=== PATIENT | female | born 1995 | race American Indian/Alaskan Native ===

== ENCOUNTER 2017-08-03 13:38 | Outpatient (CLI) | payer MEDICAID ==
[2017-08-03 13:55] VITALS: BP 120/60
--- NOTE | 2017-08-04 09:09 | Ultrasound Report ---
FINAL REPORT EXAM: US OB LIMITED HISTORY: PAPITO COMPARISON: None. TECHNIQUE: Limited obstetrical ultrasound was performed to evaluate for amniotic fluid index FINDINGS: heart rate is 148 beats per minute. Amniotic fluid index is 9.9 centimeters. There is single live intrauterine in cephalic presentation. IMPRESSION: Amniotic fluid index is 9.9 centimeters.
--- NOTE | 2017-08-04 09:15 | Ultrasound Report ---
FINAL REPORT EXAM: US OB BPP WO NON-STRESS HISTORY: WELL BEING COMPARISONS: Third trimester limited ultrasound of the same date FINDINGS: Grayscale, color and M-mode limited 3rd trimester ultrasound for biophysical profile Note that this examination was obtained on 08/03/2017 but not submitted for interpretation until 08/04/2017 Single living intrauterine . Recorded cardiac activity is 148 beats per minute. Amniotic fluid volume is subjectively normal and amniotic fluid index is approximately 10 cm. Biophysical profile score is 10/10. IMPRESSION: Single living intrauterine with biophysical profile score of 10/10.
== END 2017-08-03 16:25 | disposition home or self-care (01) ==
LOC: TRG 13:38
PROVIDERS: ATTEND Obstetrics & Gynecology
DX: O36.8130 Decreased fetal movements, third trimester, not applicable or unspecified (principal); Z3A.38 38 weeks gestation of pregnancy
CPT/HCPCS: 59025; 76815; 76819

== ENCOUNTER 2017-08-12 23:06 | Inpatient (IN) | payer MEDICAID ==
[2017-08-13] MEDS ORDERED: LACTATED RINGERS 1,000 ML ONE ×2 (00:38→00:39)
[2017-08-13] MEDS ORDERED: ePHEDrine SULFATE IV PRN ×2 (00:39→08:45)
[2017-08-13] MEDS ORDERED: SUBLIMAZE IV PRN (00:39)
[2017-08-13] MEDS ORDERED: BRETHINE SUB-Q PRN (00:39)
[2017-08-13] MEDS ORDERED: STADOL IV PRN (00:39)
[2017-08-13] MEDS ORDERED: BRETHINE IVP PRN (00:39)
[2017-08-13] MEDS ORDERED: XYLOCAINE 2% INFILTRATI ONE (00:39)
[2017-08-13] MEDS ORDERED: POLYCILLIN/NS 2 GM/100 ML 2 GM/100 ML BAG IV ONE (00:39)
[2017-08-13] MEDS ORDERED: ZOFRAN IV PRN ×2 (00:39→17:53)
[2017-08-13] MEDS ORDERED: NARCAN 0.4 MG/1 ML IV PRN ×2 (00:39→17:53)
[2017-08-13] MEDS ORDERED: MINERAL OIL PO PRN (00:39)
--- NOTE | 2017-08-13 00:51 | History and Physical Report ---
History of Present Illness Date of examination: 08/13/17 Date of admission: 08/12/17 23:31 Chief complaint: SROM clear fluid @ 10pm History of present illness: Pt is a 21yo BF EDC 08/13/17; EGA 40 0/7 weeks presents to L&D complaining of SROM clear fluid @ 10pm followed by RUC's q 3-4 mins. She received care at [facility] since 9 weeks and course has been unremarkable. records are available and GBS is Positive. Past History Past Medical History: no pertinent history Past Surgical History: no surgical history Family/Genetic History: none Social history: no significant social history, single - Obstetrical History Expected Date of Delivery: 08/13/17 Actual Gestation: 40 Week(s) 0 Day(s) : 1 Medications and Allergies Allergies Allergy/AdvReac Type Severity Reaction Status Date / Time No Known Allergies Allergy Unverified 08/03/17 14:20 Review of Systems All systems: negative - Vital Signs Vital signs: Vital Signs Temp Pulse Resp BP 98.9 F 92 H 18 134/77 08/12/17 23:54 08/12/17 23:54 08/12/17 23:54 08/12/17 23:54 Temp Pulse Resp BP Pulse Ox 98.9 F 85 18 112/71 98 08/12/17 23:54 08/13/17 00:47 08/12/17 23:54 08/13/17 00:47 08/13/17 00:43 - Physical Exam Breasts: Positive: deferred Cardiovascular: Regular rate Lungs: Positive: Clear to auscultation Abdomen: Positive: normal appearance Genitourinary (Female): Positive: normal external genitalia Uterus: Positive: enlarged Extremities: Positive: normal - Obstetrical FHR: category 1 Uterine Contraction Monitor Mode: External Cervical Dilatation: 3 (per nurse) Cervical Effacement Percentage: 80 (per nurse) station: -2 Uterine Contraction Pattern: Irregular Uterine Tone Measurement Phase: Contraction Uterine Contraction Intensity: Mild Results Result Diagrams: 08/13/17 01:44 All other labs normal. Assessment and Plan - Patient Problems (1) 40 weeks gestation of Onset Date: 08/13/17 Current Visit: Yes Status: Acute Plan to address problem: A: IUP @ 40 0/7 weeks in labor +GBS P: Admit to L&D for expectant vaginal delivery IV Ampicillin (2) GBS (group B streptococcus) infection Onset Date: 08/13/17 Current Visit: Yes Status: Acute
[2017-08-13] MEDS ORDERED: LACTATED RINGERS 1,000 ML IV SCH ×2 (01:00→13:00)
[2017-08-13] MEDS ORDERED: PITOCin/NS 30 UNIT/500ML 30 UNITS/500 ML BAG IV SCH ×2 (01:00)
[2017-08-13] MEDS ORDERED: PITOCin/NS 20 UNIT/1000ML DRIP 20 UNITS/1,000 ML BAG IV SCH ×3 (01:00→18:00)
[2017-08-13 02:03] LABS: Hematocrit 35.1 % (30.3-42.9); Hemoglobin 11.9 gm/dl (10.1-14.3); Mean Corpuscular HGB Conc 34 % (30-34); Mean Corpuscular Hemoglobin 29 pg (28-32); Mean Corpuscular Volume 86 fl (79-97); Platelet Count 250 K/mm3 (140-440); Red Blood Count 4.06 M/mm3 (3.65-5.03); Red Cell Distribution Width 14.2 % (13.2-15.2)
[2017-08-13] MEDS: AMPICILLIN/NS 1 GM/50 ML 1 GM/50 ML BAG IV SCH ×3 (05:09→14:25)
[2017-08-13] MEDS ORDERED: NARCAN 2 MG/2 ML IV PRN (08:45)
[2017-08-13] MEDS ORDERED: fentaNYL-BUPIV 2 MCG/ML-0.125% 200 MCG/100 ML BAG EPIDURAL SCH (09:00)
[2017-08-13] MEDS ORDERED: PEPCID IV ONE ×2 (12:38→15:25)
[2017-08-13] MEDS ORDERED: REGLAN IV ONE (12:38)
[2017-08-13] MEDS ORDERED: BICITRA PO ONE (12:38)
--- NOTE | 2017-08-13 12:38 | Event Note ---
Date: 08/13/17 Called and notified the patient having decelerations. Pitocin turned off with resolution. Discussed above with patient, explained we'll proceed with primary due to non-tolerance of labor. Patient and her family member has accepted above. She has been consented, we'll proceed to the OR once available
[2017-08-13] MEDS ORDERED: ANCEF/STERILE WATER 2 GM/20 ML 2 GM/20 ML SYRINGE IV NR (13:00)
[2017-08-13] MEDS ORDERED: BICITRA ONE (15:25)
[2017-08-13] MEDS ORDERED: REGLAN ONE (15:25)
[2017-08-13] MEDS ORDERED: XYLOCAINE MPF 2% ONE ×5 (16:32→17:54)
[2017-08-13] MEDS ORDERED: NACL 0.9% IR ONE (16:50)
[2017-08-13] MEDS ORDERED: WATER FOR IRRIG STERILE IR ONE (16:51)
[2017-08-13] MEDS ORDERED: ANCEF/STERILE WATER 2 GM/20 ML IV ONE (16:53)
[2017-08-13] MEDS ORDERED: MORPHINE ONE (17:22)
--- NOTE | 2017-08-13 17:50 | Operative Report ---
Operative Report Operative Report: DATE: 08/13/2017 PREOPERATIVE DIAGNOSIS: 21-year-old at 40+1 wks, category 2 with non- tolerance of labor, Arrest of dilation POSTOP DIAGNOSIS: As above NAME OF PROCEDURE: Primary low transverse section SURGEON: ODALIS SOSA MD [employer] SUPERVISOR: Charlotte ANESTHESIA: Epidural EBL: 600 mL PATHOLOGY SPECIMEN: None URINE OUTPUT: 100 mL FINDINGS: Male infant in cephalic presentation, OP position, time of 17:07 , Apgars 9 and 9, nuchal cord 1, prominent caput, weight 6 lbs. 6 oz. or 2891 g, normal uterus, ovaries tubes bilaterally DESCRIPTION OF PROCEDURE: After informed consent, patient was taken to the operating room where she was prepped and draped in a sterile fashion. Pfannestial incision was performed 2 cm above the pubic symphysis. This was then carried down to the underlying rectus fascia which was scored in the midline. The fascial incision was extended laterally with the use of Lakhani scissors, anterior leaf was then grasped with Augustus's elevated dissected sharply and bluntly off the underlying rectus. In a similar fashion the inferior leaf was grasped elevated dissected sharply and bluntly off the underlying rectus. The rectus was in the midline and the peritoneal cavity was entered without difficulty. After good visualization of the bladder the peritoneal layer was extended up and down; bladder blade was placed in the patient's pelvic cavity, bladder flap was created without difficulty. A hysterotomy incision was then performed with clear amniotic fluid noted. Infant in cephalic presentation was delivered without difficulty in the usual manner; cord was clamped cut and was handed over to waiting NICU staff. The placenta was then delivered intact, the uterus was then exteriorized cleared of all clots and debris. Her hysterotomy incision was then closed in a running locked fashion with 0 Vicryl on a CTX; using the same suture were able to imbricate the initial layer. The uterus was then returned to the patient's pelvic cavity; the peritoneal edges were grasped with hemostats and Melinda's; irrigation was used to clear the gutters of all clots and debris. Tisseel hemostatic agent was applied copiously over the hysterotomy incision. The bladder flap was then closed in a running fashion with 3-0 Vicryl. The peritoneal layer was closed in a running fashion with 3-0 Vicryl; the rectus was reapproximated with a single aafstn-ti-drapd stitch. The fascia was then closed in a running fashion with 0 Vicryl; the subcutaneous layer was reapproximated with a single [id number] stitch. The skin was then closed in a subcuticular manner with 4-0 Monocryl. She tolerated the procedure well lap and instrument counts were correct 2, she did receive 2 grams of Ancef prior to the procedure. She is transferred to PACU in stable condition.
[2017-08-13] MEDS ORDERED: ANUCORT-HC PR PRN (17:53)
[2017-08-13] MEDS ORDERED: TYLENOL PO PRN (17:53)
[2017-08-13] MEDS ORDERED: LANSINOH TP PRN (17:53)
[2017-08-13] MEDS ORDERED: MILK OF MAGNESIA PO PRN (17:53)
[2017-08-13] MEDS ORDERED: MYLICON PO PRN (17:53)
[2017-08-13] MEDS ORDERED: TUCKS PAD TP PRN (17:53)
[2017-08-13] MEDS ORDERED: SODIUM CHLORIDE FLUSH SYRINGE 10 ML IV NR (18:00)
[2017-08-13] MEDS: DILAUDID IV PRN ×2 (18:10→18:43)
[2017-08-13] MEDS: TORADOL IV PRN (18:23)
[2017-08-14] MEDS: TORADOL IV PRN ×2 (00:21→08:33)
[2017-08-14] MEDS: D5LR 1,000 ML IV SCH ×2 (04:51→14:43)
[2017-08-14 06:21] LABS: Hematocrit 34.6 % (30.3-42.9); Hemoglobin 11.3 gm/dl (10.1-14.3)
[2017-08-14] MEDS: PRENATAL VITAMIN PO SCH (10:29)
[2017-08-14] MEDS: FEOSOL PO SCH (10:31)
[2017-08-14] MEDS: PERCOCET 5/325 PO PRN (12:25)
--- NOTE | 2017-08-14 13:04 | Progress Note ---
Assessment and Plan - Patient Problems (1) S/P primary low transverse Current Visit: Yes Status: Acute Plan to address problem: POD#1 Continue routine post-op care. Encourage out of bed to chair. Subjective - Subjective Date of service: 08/14/17 Principal diagnosis: POD#1 s/p primary csection for distress Patient reports: appetite normal, voiding normally, pain well controlled [place]: doing well Objective - Vital Signs Latest vital signs: Vital Signs Temp Pulse Resp BP BP Pulse Ox 08/14/17 12:25 20 08/14/17 09:00 98.2 F 105 H 20 112/61 99 08/14/17 06:10 99.5 F 88 19 134/82 96 08/14/17 01:07 97.8 F 104 H 20 91/62 96 08/13/17 22:14 97.3 F L 108 H 20 143/86 97 08/13/17 19:13 20 08/13/17 19:06 86 128/84 08/13/17 19:05 99.1 F 08/13/17 19:00 90 20 132/90 96 08/13/17 18:55 84 21 128/84 95 08/13/17 18:50 83 19 137/82 96 08/13/17 18:45 84 18 131/87 96 08/13/17 18:43 16 08/13/17 18:40 20 08/13/17 18:39 90 19 136/90 97 08/13/17 18:38 16 08/13/17 18:30 91 H 16 136/97 97 08/13/17 18:25 94 H 21 140/91 97 08/13/17 18:20 88 23 135/95 98 08/13/17 18:15 96 H 20 147/91 99 08/13/17 18:10 99 H 22 137/96 99 08/13/17 18:05 95 H 15 133/95 99 08/13/17 18:00 100 H 19 136/90 100 08/13/17 17:55 107 H 20 142/87 99 08/13/17 17:54 98.5 F 107 H 20 142/87 98 08/13/17 17:53 15 172/106 98 08/13/17 17:35 172/106 08/13/17 16:15 100 H 119/72 08/13/17 15:59 82 118/72 08/13/17 15:39 107 H 114/79 08/13/17 15:34 111 H 127/74 08/13/17 15:30 92 H 120/69 08/13/17 15:19 110 H 115/69 08/13/17 15:14 115 H 112/78 08/13/17 15:09 117 H 105/74 08/13/17 15:05 118 H 120/75 08/13/17 14:56 112 H 135/63 08/13/17 14:50 90 118/80 08/13/17 14:39 85 109/75 08/13/17 14:34 82 123/74 08/13/17 14:29 88 122/65 08/13/17 14:24 81 126/71 08/13/17 14:19 88 127/76 08/13/17 14:14 92 H 120/68 08/13/17 14:09 76 124/69 08/13/17 14:05 106 H 134/69 08/13/17 13:55 83 138/68 08/13/17 13:45 78 127/82 08/13/17 13:39 83 125/79 08/13/17 13:34 91 H 124/78 08/13/17 13:31 91 H 131/77 08/13/17 13:25 98 H 132/77 08/13/17 13:19 80 126/72 08/13/17 13:14 80 131/64 08/13/17 13:10 79 132/72 Intake and Output 08/13/17 08/14/17 08/14/17 23:59 07:59 15:59 Intake Total 1600 Output Total 1000 Balance 600 Intake: IV 1600 Output: Urine 1000 Indwelling Catheter 450 Other: Total, Output Amount 450 Weight 88.451 kg - Exam Abdomen: Present: normal appearance, soft Uterus: Present: normal, firm, fundal height below umbilicus Extremities: Present: normal Incision: Present: dry, dressed
[2017-08-14] MEDS: MOTRIN PO PRN (17:45)
[2017-08-14] MEDS ORDERED: BOOSTRIX IM ONE (17:53)
[2017-08-14] MEDS ORDERED: M-M-R II VACCINE SUB-Q ONE (17:53)
--- NOTE | 2017-08-14 19:45 | Progress Note ---
Subjective Date of service: 08/14/17 Principal diagnosis: POD#1 s/p primary csection for distress Interval history: Pt doing well. No anesthetic related complaints. Objective - Constitutional Vitals: Vital Signs - 12hr 08/14/17 08/14/17 08/14/17 09:00 12:25 12:30 Temperature 98.2 F 97.8 F Pulse Rate 105 H 95 H Respiratory 20 20 18 Rate Blood Pressure Blood Pressure 112/61 122/62 [Right] O2 Sat by Pulse 99 99 Oximetry 08/14/17 15:27 Temperature 99.8 F H Pulse Rate 103 H Respiratory 18 Rate Blood Pressure 116/67 Blood Pressure [Right] O2 Sat by Pulse 98 Oximetry - Labs CBC & Chem 7: 08/14/17 05:27
[2017-08-15] MEDS: MOTRIN PO PRN ×2 (01:29→18:15)
[2017-08-15] MEDS: FEOSOL PO SCH (10:37)
[2017-08-15] MEDS: PRENATAL VITAMIN PO SCH (10:37)
--- NOTE | 2017-08-15 11:13 | Progress Note ---
Assessment and Plan - Patient Problems (1) S/P primary low transverse Current Visit: Yes Status: Acute Plan to address problem: POD 2 - stable Continue routine postop orders Discharge to home 08/16/17 Follow-up at [facility] in 2 weeks for incision check Subjective - Subjective Date of service: 08/15/17 Principal diagnosis: POD#2 s/p primary csection for distress Patient reports: appetite normal, voiding normally, pain well controlled, flatus , ambulating normally, no bowel movement : doing well, bottle feeding Objective - Vital Signs Latest vital signs: Vital Signs Temp Pulse Resp BP BP Pulse Ox 08/15/17 08:39 97.7 F 86 20 129/83 99 08/15/17 00:48 98.4 F 85 20 136/96 98 08/14/17 15:27 99.8 F H 103 H 18 116/67 98 08/14/17 12:30 97.8 F 95 H 18 122/62 99 08/14/17 12:25 20 Intake and Output 08/14/17 08/15/17 08/15/17 23:59 07:59 15:59 Other: # Voids Void 2 - Exam Abdomen: Present: normal appearance, soft Vulva: both: normal Uterus: Present: normal, firm, fundal height below umbilicus Extremities: Present: normal Deep Tendon Reflex Grade: Normal +2 Incision: Present: normal, dry, dressed
--- NOTE | 2017-08-15 11:14 | Discharge Summary ---
Providers - Providers Date of Admission: 08/12/17 23:31 Date of discharge: 08/15/17 Attending physician: LORETTA PENA Primary care physician: LORETTA PENA Hospitalization Reason for admission: active labor, rupture of membranes, IUP at term Delivery: Procedure: primary low transverse Episiotomy: none Laceration: none Incision: normal, dry, dressed Other procedures: none complications: none Discharge diagnosis: IUP at term delivered [place] baby: male Hospital course: Uncomplicated Condition at discharge: Stable Disposition: DC-01 TO HOME OR SELFCARE - Discharge Diagnoses (1) S/P primary low transverse Status: Acute Plan - Discharge Medications Prescriptions: Ibuprofen [Motrin 600 MG tab] 600 mg PO Q8H PRN #30 tablet PRN Reason: Pain Multivitamin with Iron [Multivitamins with Iron] 1 each PO DAILY #30 tablet oxyCODONE /ACETAMINOPHEN [Percocet 5/325] 1 tab PO Q6HR PRN #30 tablet PRN Reason: Pain - Provider Discharge Summary Activity: routine, no sex for 6 weeks, no heavy lifting 4 weeks, no strenuous exercise Diet: routine Instructions: routine Additional instructions: [] Smoking cessation referral if applicable(refer to patient education folder for contact #) [] Refer to [facility] Booklet Call your doctor immediately for: * Fever > 100.5 * Heavy vaginal bleeding ( >1 pad per hour) * Severe persistent headache * Shortness of breath * Reddened, hot, painful area to leg or breast * Drainage or odor from incision. * Keep incision clean and dry at all times and follow doctor's instructions regarding bathing/showering - Follow up plan Follow up: LORETTA PENA MD [Primary Care Provider] - 14 Days (Call [facility] to schedule an appointment in 2 weeks for incision check)
[2017-08-16] MEDS: PERCOCET 5/325 PO PRN (08:31)
[2017-08-16 17:33] VITALS: BP 138/82
== END 2017-08-16 19:12 | disposition home or self-care (01) | DRG 766 ==
LOC: TRG 23:06 → LD 23:31 → APU 08-13 18:08 → OB 08-13 21:18
PROVIDERS: ADMIT Obstetrics & Gynecology; ATTEND Obstetrics & Gynecology
PROC: 10D00Z1 Extraction of Products of Conception, Low, Open Approach (ICD-10-PCS; principal; 2017-08-13)
DX: O42.02 Full-term premature rupture of membranes, onset of labor within 24 hours of rupture (principal); O99.824 Streptococcus B carrier state complicating childbirth; Z37.0 Single live birth; Z3A.40 40 weeks gestation of pregnancy; O62.1 Secondary uterine inertia
CPT/HCPCS: 36415; 85014; 85018; 85027; 86592; 86850; 86900; 86901; 99211; C9250; G0463; J0290; J0595; J0690; J1170; J1885; J2270; J2590; J2765; J7120; J7121

== ENCOUNTER 2017-08-25 14:54 | Emergency (ER) | payer MEDICAID ==
[2017-08-25 15:27] VITALS: BP 137/96
--- NOTE | 2017-08-25 17:18 | Emergency Department Report ---
ED Laceration HPI - HPI Chief Complaint: Laceration/Recheck/Suture Stated Complaint: INCISION DRAINING Time Seen by Provider: 08/25/17 16:54 Location: Abdomen Severity: mild Tetanus Status: Up to Date Laceration Symptoms: Yes Pain, No Foreign Body Sensation, No Numbness, No Weakness Other History: This is a 21-year-old -[place] female who presents with complications with wound from August 13. Patient reports noticing bleeding to wound around 2230 last night. States she is always had some mild swelling to area with discomfort. She has not cleaned area with peroxide and water as instructed by Dr. Kenny Carney who is [employer]. She called their office today and he advised her to follow-up in emergency room. Denies odor, redness, swelling, and numbness or tingling. ED Review of Systems ROS: Stated complaint: INCISION DRAINING Other details as noted in HPI Constitutional: denies: chills, fever Respiratory: denies: cough, shortness of breath, wheezing Cardiovascular: denies: chest pain, palpitations Gastrointestinal: denies: abdominal pain, nausea, diarrhea Skin: lesions (drainage from transfers and incision). denies: rash Neurological: denies: headache, weakness, numbness, paresthesias Psychiatric: denies: anxiety, depression ED Past Medical Hx - Past Medical History Hx Hypertension: No Hx Diabetes: No Hx Deep Vein Thrombosis: No Hx Renal Disease: No Hx Sickle Cell Disease: No Hx Seizures: No Hx Asthma: No Hx COPD: No Hx HIV: No - Surgical History Additional Surgical History: - Social History Smoking Status: Never Smoker Substance Use Type: None - Medications Home Medications: Home Medications Medication Instructions Recorded Confirmed Last Taken Type Ibuprofen [Motrin 600 MG tab] 600 mg PO Q8H PRN #30 tablet 08/13/17 Unknown Rx Multivitamin with Iron 1 each PO DAILY #30 tablet 08/13/17 Unknown Rx [Multivitamins with Iron] Pnv No.95/Ferrous Fum/Folic AC 1 tab PO DAILY 08/13/17 08/13/17 1 Day Ago History [ Vitamins Tablet] ~08/12/17 oxyCODONE /ACETAMINOPHEN [Percocet 1 tab PO Q6HR PRN #30 tablet 08/13/17 Unknown Rx 5/325] Laceration Physical Exam - Exam General: Vital signs noted. No distress. Alert and acting appropriately. Wound Length (cm): 4 (3 mm) Laceration Location: Abdomen Full Body Front + Back: 1 - 3 mm wound opening from low transverse abdominal wound, serosanganious drainage, no odor, no erythematous or surrounding cellulitis Laceration Exam: Yes Normal Distal CMS, No Foreign Body, No Exposed Tendon, Vessel, or Nerve, No Tendon Injury ED Course Vital Signs 08/25/17 15:19 Temperature 97.5 F L Pulse Rate 72 Respiratory 20 Rate Blood Pressure 137/96 O2 Sat by Pulse 100 Oximetry ED Medical Decision Making - Medical Decision Making This is a 21 y.o. female presents with drainage from transverse incision from C- section on August 13, 2017. Patient examined by me. Vitals are stable and in no acute distress. Patient is non-toxic appearing and stable. Physical examination of wound healing WNL, 3 mm opening with mild drainage. Instructed to continue cleaning the area with peroxide and water. Apply to Steri-Strips and abdominal pad. Follow-up with Dr. Kenny Carney in [employer] [facility] in 2-3 days. Discharged home in stable condition. Discussed ER care plan with patient. Patient agreed with plan. F/U with [employer] in 2-3 days. Critical care attestation.: If time is entered above; I have spent that time in minutes in the direct care of this critically ill patient, excluding procedure time. ED Disposition Clinical Impression: Complication of section wound, Healing of postoperative wound Disposition: - TO HOME OR SELFCARE Is pt being admited?: No Does the pt Need Aspirin: No Condition: Stable Instructions: Acute Wound Care (ED), Wound Healing and Your Diet (ED) Additional Instructions: Clean wound with peroxide and and water twice a day. Applied triple antibiotic was seen to wound twice a day. Follow-up with Dr. Carney, [employer] in 2-3 days. Referrals: KENNY CARNEY MD [Staff Physician] - 3-5 Days Time of Disposition: 17:25 Print Language: OMANI
== END 2017-08-25 17:37 | disposition home or self-care (01) ==
LOC: ED 14:54
DX: T81.89XA Other complications of procedures, not elsewhere classified, initial encounter (principal); Y83.8 Other surgical procedures as the cause of abnormal reaction of the patient, or of later complication, without mention of misadventure at the time of the procedure; Y92.89 Other specified places as the place of occurrence of the external cause
CPT/HCPCS: 99282

== ENCOUNTER 2021-10-22 11:31 | Emergency (ER) | payer MEDICAID ==
[2021-10-22 11:37] VITALS: BP 118/80
--- NOTE | 2021-10-22 13:15 | Emergency Department Report ---
ED General Adult HPI - General Chief complaint: Weakness Stated complaint: FATIGUE Time Seen by Provider: 10/22/21 12:46 Source: patient, EMS Mode of arrival: Stretcher Limitations: No Limitations - History of Present Illness Initial comments: 25-year-old female with no past medical history reports fatigue since yesterday with nausea. Patient denies vomiting no diarrhea no chest pain no shortness of breath, no abdominal pain. No urinary symptoms reported. Patient reports a last menstrual period was early September. Patient reports she has missed her period for this month. Patient reports no other acute signs and symptoms at this time. Patient reports she really has not been eating a lot of food lately outside of junk food. Patient reports she has been hydrating but other liquids but not much water. - Related Data Home Medications Medication Instructions Recorded Confirmed Last Taken Pnv No.95/Ferrous Fum/Folic AC 1 tab PO DAILY 08/13/17 08/13/17 1 Day Ago [ Vitamins Tablet] ~08/12/17 Previous Rx's Medication Instructions Recorded Last Taken Type Ibuprofen [Motrin 600 MG tab] 600 mg PO Q8H PRN #30 tablet 08/13/17 Unknown Rx Multivitamin with Iron 1 each PO DAILY #30 tablet 08/13/17 Unknown Rx [Multivitamins with Iron] oxyCODONE /ACETAMINOPHEN [Percocet 1 tab PO Q6HR PRN #30 tablet 08/13/17 Unknown Rx 5/325] Allergies Allergy/AdvReac Type Severity Reaction Status Date / Time No Known Allergies Allergy Verified 10/22/21 11:38 ED Review of Systems ROS: Stated complaint: FATIGUE Other details as noted in HPI Comment: All other systems reviewed and negative Constitutional: other (Fatigue) ED Past Medical Hx - Past Medical History Previous Medical History?: No Hx Hypertension: No Hx Diabetes: No Hx Deep Vein Thrombosis: No Hx Renal Disease: No Hx Sickle Cell Disease: No Hx Seizures: No Hx Asthma: No Hx COPD: No Hx HIV: No - Surgical History Additional Surgical History: - Social History Smoking Status: Never Smoker Substance Use Type: None - Medications Home Medications: Home Medications Medication Instructions Recorded Confirmed Last Taken Type Ibuprofen [Motrin 600 MG tab] 600 mg PO Q8H PRN #30 tablet 08/13/17 Unknown Rx Multivitamin with Iron 1 each PO DAILY #30 tablet 08/13/17 Unknown Rx [Multivitamins with Iron] Pnv No.95/Ferrous Fum/Folic AC 1 tab PO DAILY 08/13/17 08/13/17 1 Day Ago History [ Vitamins Tablet] ~08/12/17 oxyCODONE /ACETAMINOPHEN [Percocet 1 tab PO Q6HR PRN #30 tablet 08/13/17 Unknown Rx 5/325] ED Physical Exam - General Limitations: No Limitations General appearance: alert, in no apparent distress - Head Head exam: Present: atraumatic, normocephalic - Eye Eye exam: Present: normal appearance - ENT ENT exam: Present: mucous membranes moist - Neck Neck exam: Present: normal inspection - Respiratory Respiratory exam: Present: normal lung sounds bilaterally. Absent: respiratory distress - Cardiovascular Cardiovascular Exam: Present: regular rate, normal rhythm. Absent: systolic murmur, diastolic murmur, rubs, gallop - GI/Abdominal GI/Abdominal exam: Present: soft, normal bowel sounds. Absent: distended, tenderness - Extremities Exam Extremities exam: Present: normal inspection - Back Exam Back exam: Present: normal inspection - Neurological Exam Neurological exam: Present: alert, oriented X3 - Psychiatric Psychiatric exam: Present: normal affect, normal mood - Skin Skin exam: Present: warm, dry, intact, normal color. Absent: rash ED Course Vital Signs 10/22/21 11:36 Temperature 98.9 F Pulse Rate 100 H Respiratory 16 Rate Blood Pressure 118/80 [Left] O2 Sat by Pulse 99 Oximetry ED Medical Decision Making - Lab Data Result diagrams: 10/22/21 13:23 10/22/21 13:23 - Medical Decision Making 25-year-old female with no significant past medical history reports to the ER with complaints of weakness with nausea since yesterday. No other acute signs or symptoms reported patient reports for last also. Was early September and she reports that she has missed her menstrual period this month. On physical exam there are no acute signs and symptoms reported. Labs are unremarkable. Patient is not . Patient reports she is feeling better since she has been in the ER. Patient informed to follow her primary care provider as needed as well as to obtain a annual physical. Patient reports she has not had one in a couple years. Patient agrees with plan of care and verbalizes understanding. Patient informed if symptoms are to get worse to report back to the ER for further evaluation. Vital Signs 10/22/21 11:36 Temperature 98.9 F Pulse Rate 100 H Respiratory 16 Rate Blood Pressure 118/80 [Left] O2 Sat by Pulse 99 Oximetry Lab Results 10/22/21 10/22/21 10/22/21 Range/Units 13:23 13:23 13:23 WBC 8.7 (4.5-11.0) K/mm3 RBC 4.54 (3.65-5.03) M/mm3 Hgb 13.1 (10.1-14.3) gm/dl Hct 39.5 (30.3-42.9) % MCV 87 (79-97) fl MCH 29 (28-32) pg MCHC 33 (30-34) % RDW 14.0 (13.2-15.2) % Plt Count 294 (140-440) K/mm3 Lymph % (Auto) 22.9 (13.4-35.0) % [place] % (Auto) 6.7 (0.0-7.3) % Eos % (Auto) 0.3 (0.0-4.3) % Baso % (Auto) 0.3 (0.0-1.8) % Lymph # (Auto) 2.0 (1.2-5.4) K/mm3 [place] # (Auto) 0.6 (0.0-0.8) K/mm3 Eos # (Auto) 0.0 (0.0-0.4) K/mm3 Baso # (Auto) 0.0 (0.0-0.1) K/mm3 Seg Neutrophils % 69.8 (40.0-70.0) % Seg Neutrophils # 6.1 (1.8-7.7) K/mm3 Sodium 139 (137-145) mmol/L Potassium 3.6 (3.6-5.0) mmol/L Chloride 103.6 (98-107) mmol/L Carbon Dioxide 26 (22-30) mmol/L Anion Gap 13 mmol/L BUN 7 (7-17) mg/dL Creatinine 0.7 (0.6-1.2) mg/dL Estimated GFR > 60 ml/min BUN/Creatinine Ratio 10 % Glucose 79 (65-100) mg/dL Calcium 8.8 (8.4-10.2) mg/dL HCG, Quant < 2 (0-4) mIU/mL Critical care attestation.: If time is entered above; I have spent that time in minutes in the direct care of this critically ill patient, excluding procedure time. ED Disposition Clinical Impression: Weakness, Fatigue Disposition: 01 HOME / SELF CARE / HOMELESS Is pt being admited?: No Condition: Stable Instructions: Fatigue, Weakness, [id number] Referrals: XIAO MALDONADO MD [Primary Care Provider] - 3-5 Days
[2021-10-22 13:53] LABS: Basophils % (Auto) 0.3 % (0.0-1.8); Eosinophils % (Auto) 0.3 % (0.0-4.3); Hematocrit 39.5 % (30.3-42.9); Hemoglobin 13.1 gm/dl (10.1-14.3); Lymphocytes % (Auto) 22.9 % (13.4-35.0); Mean Corpuscular HGB Conc 33 % (30-34); Mean Corpuscular Volume 87 fl (79-97); Monocytes # (Auto) 0.6 K/mm3 (0.0-0.8); Monocytes % (Auto) 6.7 % (0.0-7.3); Platelet Count 294 K/mm3 (140-440); Red Blood Count 4.54 M/mm3 (3.65-5.03)
[2021-10-22 15:47] LABS: Blood Urea Nitrogen 7 mg/dL (7-17); Calcium 8.8 mg/dL (8.4-10.2); Hemolysis Index 5
[2021-10-22 15:56] LABS: BUN/Creatinine Ratio 10
== END 2021-10-22 19:06 | disposition home or self-care (01) ==
LOC: ED 11:31
DX: R53.1 Weakness (principal); R53.83 Other fatigue; R11.0 Nausea; Z79.899 Other long term (current) drug therapy
CPT/HCPCS: 36415; 80048; 84702; 85025; 99283